=== PATIENT | female | born 1935 | race Two or more races ===

== ENCOUNTER 2022-05-14 08:28 | Outpatient (CLI) | payer OTHER | END 2022-05-14 08:36 | disposition home or self-care (01) | LOC: RAD 08:28 | PROVIDERS: ATTEND Internal Medicine Cardiovascular Disease | DX: M46.48 Discitis, unspecified, sacral and sacrococcygeal region (principal); R07.9 Chest pain, unspecified ==

== ENCOUNTER 2022-06-04 10:33 | Outpatient (CLI) | payer OTHER | END 2022-06-04 10:34 | disposition home or self-care (01) | LOC: NUCLEAR 10:33 | PROVIDERS: ATTEND Internal Medicine Cardiovascular Disease | DX: M81.0 Age-related osteoporosis without current pathological fracture (principal); E55.9 Vitamin D deficiency, unspecified ==

== ENCOUNTER 2023-05-07 10:51 | Outpatient (CLI) | payer OTHER | END 2023-05-07 11:01 | disposition home or self-care (01) | LOC: RAD 10:51 | DX: S72.141D Displaced intertrochanteric fracture of right femur, subsequent encounter for closed fracture with routine healing (principal) ==

== ENCOUNTER 2023-06-24 14:51 | Outpatient (CLI) | payer OTHER | END 2023-06-24 15:01 | disposition home or self-care (01) | LOC: RAD 14:51 | DX: S72.141D Displaced intertrochanteric fracture of right femur, subsequent encounter for closed fracture with routine healing (principal) ==

== ENCOUNTER 2023-11-27 09:24 | Outpatient (CLI) | payer OTHER | END 2023-11-27 10:00 | disposition home or self-care (01) | LOC: SONOGRAMA 09:24 | PROVIDERS: ATTEND Specialist/Technologist, Other Nephrology | DX: G91.2 (Idiopathic) normal pressure hydrocephalus (principal); R10.9 Unspecified abdominal pain; N18.30 Chronic kidney disease, stage 3 unspecified; R31.9 Hematuria, unspecified ==

== ENCOUNTER → 2025-02-28 | Outpatient (CLI) | payer OTHER | END | disposition home or self-care (01) | LOC: MAMO-SONO 10:28 | PROVIDERS: ATTEND Specialist | DX: Z12.31 Encounter for screening mammogram for malignant neoplasm of breast (principal); Z80.3 Family history of malignant neoplasm of breast ==

== ENCOUNTER 2025-07-19 08:07 | Outpatient (CLI) | payer OTHER | END 2025-07-19 08:08 | disposition home or self-care (01) | LOC: NUCLEAR 08:07 | PROVIDERS: ATTEND Neurological Surgery | DX: I69.921 Dysphasia following unspecified cerebrovascular disease (principal); I65.21 Occlusion and stenosis of right carotid artery ==

== ENCOUNTER 2025-07-19 10:02 | Outpatient (CLI) | payer OTHER | END 2025-07-19 10:11 | disposition home or self-care (01) | LOC: MRI 10:02 | PROVIDERS: ATTEND Neurological Surgery | DX: I69.998 Other sequelae following unspecified cerebrovascular disease (principal); I69.921 Dysphasia following unspecified cerebrovascular disease | CPT/HCPCS: 70553; Q9965 ==

== ENCOUNTER 2025-09-11 11:10 | Outpatient (CLI) | payer OTHER | END 2025-09-11 11:14 | disposition home or self-care (01) | LOC: TOM 11:10 | PROVIDERS: ATTEND Neurological Surgery | DX: G91.2 (Idiopathic) normal pressure hydrocephalus (principal) ==

== ENCOUNTER 2025-10-04 10:30 | Outpatient (CLI) | payer OTHER | END 2025-10-04 10:41 | disposition home or self-care (01) | LOC: MRI 10:30 | DX: G70.9 Myoneural disorder, unspecified (principal) | CPT/HCPCS: 70551 ==